=== PATIENT | female | born 1970 | race Caucasian/White ===

== ENCOUNTER 2017-12-12 10:20 | Observation (INO) ==
[2017-12-12 11:24] LABS: Basophils % 0.5 %; Eosinophils # 0.2 K/mcL (0.0-0.6); Eosinophils % 1.8 %; Hematocrit 31.2 % (35.3-44.9); Hemoglobin 10.3 g/dL (11.5-15.4); Immature Granulocytes % 0.7 % (0-4); Lymphocytes # 3.2 K/mcL (0.6-4.6); Lymphocytes % 37.6 %; Mean Corpuscular Hemoglobin 26.5 pg (28.0-33.3); Mean Corpuscular Volume 80.4 fL (83.0-100.0); Mean Platelet Volume 9.4 fL (9.4-12.4); Monocytes # 0.5 K/mcL (0.0-1.3); Monocytes % 6.4 %; Neutrophils # 4.5 K/mcL (1.6-8.9); Platelet Count 221 K/mcL (140-400); Red Blood Count 3.88 M/mcL (3.82-4.97); Red Cell Distribution Width 13.3 % (11.5-14.5)
[2017-12-12 11:45] LABS: Bilirubin,Urine Negative (Negative); Blood,Urine Trace (Negative); Clarity,Urine Clear (Clear); Color,Urine Yellow (Yellow); Glucose,Urine (UA) 100 mg/dL (Normal); Ketones,Urine Negative (Negative); Leukocyte Esterase,Urine Negative (Negative); Nitrite,Urine Negative (Negative); Protein,Urine Negative (Neg-Trace); Specific Gravity,Urine 1.015 (1.010-1.025); Urobilinogen,Urine Normal (Normal)
[2017-12-12 11:48] LABS: Bacteria,Urine None Seen per hpf (None-Few); Hyaline Casts,Urine None Seen per lpf (None-Few); RBC,Urine 0-3 per hpf (0-3); Squamous Epithelial Cell,Urine Many per lpf (None-Few); WBC,Urine 0-3 per hpf (0-3)
[2017-12-12 11:50] LABS: Troponin I < 0.03 ng/mL (< 0.04)
[2017-12-12 11:51] LABS: BUN/Creatinine Ratio 22 (6-26); Blood Urea Nitrogen 14 mg/dL (6-20); Calcium 9.1 mg/dL (8.6-10.3); Carbon Dioxide 24 mEq/L (23-29); Chloride 104 mEq/L (98-107); Glucose 310 mg/dL (70-105); Osmolality,Calculated 294 (280-300); Potassium 3.6 mEq/L (3.5-5.1); Sodium 136 mEq/L (136-145); eGFR For African Americans > 60 (> 60); eGFR For Non-African Americans > 60 (> 60)
[2017-12-12] MEDS ORDERED: 0.9 % Sodium Chloride 1,000 ML IVC ONE (12:35)
--- NOTE | 2017-12-12 13:47 | Emergency Department Note ---
Disposition Clinical Impression: Bradycardia, Near syncope Chest pain Qualifiers: Chest pain type: unspecified Qualified Code(s): R07.9 - Chest pain, unspecified Disposition: Admitted As Inpatient Condition: Good Referrals: Camilo Lux DO [Primary Care Provider] - Forms: ED Satisfaction Letter, Work/School Release General Adult HPI - General Chief complaint: ED General Medical Stated complaint: high blood sugar Time Seen by Provider: 12/12/17 10:24 Source: patient Mode of arrival: ambulatory Limitations: no limitations Nursing Notes Reviewed: Yes Vital Signs Reviewed: Yes - History of Present Illness HPI Narrative: Patient presents to the emergency department for evaluation of lightheadedness, feeling like she is going to pass out, blurred vision, chest pain. Patient states that she has been having issues with her blood sugar over the last several weeks. She is not sure if it is related to this or not. She describes first onset of chest pain 2 days ago. Describes a pressure in her chest. Pain is been intermittent in nature since this time. States she has had previous cardiac worse workup is unsure when last one was. She has multiple risk factors including obesity, hypertension, hyperlipidemia. Family history of heart disease. The patient's generalized weakness and "not feeling right" -is otherwise Hard for her to explain. At this point, we will further investigate with cardiac workup as well as treat her hypoglycemia with fluids. Pain Scale: 0 - Related Data Home Medications Medication Instructions Recorded Confirmed Atenolol [Tenormin] 25 mg PO DAILY 12/12/17 12/12/17 Diclofenac Sodium [Voltaren] 1 appl TP QID 12/12/17 12/12/17 Fenofibrate [Tricor] 54 mg PO DAILY 12/12/17 12/12/17 Fluticasone Propionate Nasal 1 spray NS DAILY 12/12/17 12/12/17 [Flonase] Insulin Glargine,Hum.rec.anlog 28 unit SQ HS 12/12/17 12/12/17 [Basaglar Annie U-100] Lidocaine 4% CRM (LMX) [Lmx 4] 1 appl TP TID 12/12/17 12/12/17 Liraglutide [Victoza 3-Jas] 1.8 mg IJ DAILY 12/12/17 12/12/17 Losartan Potassium [Cozaar] 50 mg PO BID 12/12/17 12/12/17 Omeprazole Magnesium 20 mg PO DAILY PRN 12/12/17 12/12/17 Ranitidine HCl [Acid Pass Worker] 150 mg PO HS PRN 12/12/17 12/12/17 SUMAtriptan Succinate [Imitrex] 100 mg PO TID PRN 12/12/17 12/12/17 hydroCHLOROthiazide 50 mg PO QAM 12/12/17 12/12/17 [Hydrochlorothiazide] Previous Rx's Medication Instructions Recorded Cyclobenzaprine [Flexeril] 10 mg PO TID PRN #21 tablet 11/26/17 Naproxen 500 mg PO BID PRN #20 tablet 11/26/17 Allergies Allergy/AdvReac Type Severity Reaction Status Date / Time cephalexin [From Keflex] Allergy Hives Verified 12/12/17 14:15 lisinopril AdvReac Cough Verified 12/12/17 14:15 loratadine AdvReac See Verified 12/12/17 14:15 Comments simvastatin AdvReac Cough Verified 12/12/17 14:15 ceftinir Allergy Hives Uncoded 12/12/17 14:15 Review of Systems: CONSTITUTIONAL: Generalized weakness and fatigue HEENT: Eyes: No visual changes. Ears, Nose, Throat: No hearing loss, difficulty talking or unable to swallow. SKIN: No rash or itching. CARDIOVASCULAR: Chest pain RESPIRATORY: No shortness of breath, cough or sputum. GASTROINTESTINAL: No anorexia, nausea, vomiting or diarrhea. No abdominal pain or blood. GENITOURINARY: No burning on urination or hematuria. NEUROLOGICAL: Near syncope and associated dizziness No headache, , paralysis, ataxia, numbness or tingling in the extremities. No change in bowel or bladder control. MUSCULOSKELETAL: No muscle pain, back pain, joint pain or stiffness. 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: Reports: non-contributory - Social History Smoking Status: Never smoker Smokeless Tobacco Status: No Alcohol use: Reports: none Drug use: Reports: none Physical Exam General: Well appearing, nontoxic, no acute distress Head: Normocephalic Atraumatic Eyes: PERRL, EOMI ENT: Airway patent, no stridor Neck: supple, no meningismus Chest: Lungs clear to auscultation bilateral Cardiac: Regular rate and rhythm, no murmurs, rubs or gallops Abdomen: soft, nontender, nondistended; Musculoskeletal: Calves symmetric, nontender, no palpable cord Skin: No rash, normal skin tone Neuro: No gross deficit Psych: Flat affect - General General appearance: alert, in no apparent distress Course - Reevaluation(s) Reevaluation #1: During the patient's stay she has had multiple episodes of bradycardia captured on the monitor. Rate goes to the low 40s. No specific sign of heart block at this time. Reevaluation #2: On reevaluation of patient she states that she has had multiple episodes while lying in bed where she feels worsening generalized feeling which she somewhat describes as dizziness. She has had multiple episodes of near-syncope where she has to sit down for passing out. The patient has had runs of bradycardia in the low 40s. Patient takes atenolol 25 mg tablets daily. Patient continues to have menstrual periods. Heart score of 4. Patient was brought in for further observation - Consultations Consultation #1: Discussed with hospitalist. Hospitalist requests TSH and free T4. Vital Signs Temperature 98.3 F 12/12/17 10:20 Pulse Rate 54 12/12/17 10:20 Respiratory Rate 18 12/12/17 10:20 Blood Pressure 169/110 12/12/17 10:20 O2 Sat by Pulse Oximetry 97 12/12/17 10:20 Temperature 98.3 F 12/12/17 10:30 Pulse Rate 50 12/12/17 14:15 Respiratory Rate 18 12/12/17 14:15 Blood Pressure 167/77 12/12/17 14:15 O2 Sat by Pulse Oximetry 99 12/12/17 14:15 Oxygen Delivery Oxygen Delivery Room Air Medical Decision Making - Medical Records Medical records reviewed: Yes I reviewed the patient's medical records. - Lab Data Lab results reviewed: Yes I reviewed the patient's lab results. Result diagrams: 12/12/17 11:03 12/12/17 11:03 Lab Results 12/12/17 12/12/17 12/12/17 Range/Units 10:47 11:03 11:03 WBC 8.5 (4.3-11.1) K/mcL RBC 3.88 (3.82-4.97) M/mcL Hgb 10.3 L (11.5-15.4) g/dL Hct 31.2 L (35.3-44.9) % MCV 80.4 L (83.0-100.0) fL MCH 26.5 L (28.0-33.3) pg MCHC 33.0 (31.6-35.5) g/dL RDW 13.3 (11.5-14.5) % Plt Count 221 (140-400) K/mcL MPV 9.4 (9.4-12.4) fL Immature Gran % 0.7 (0-4) % Seg Neutrophils % 53.0 % Lymphocytes % 37.6 % Monocytes % 6.4 % Eosinophils % 1.8 % Basophils % 0.5 % Neutrophils # 4.5 (1.6-8.9) K/mcL Lymphocytes # 3.2 (0.6-4.6) K/mcL Monocytes # 0.5 (0.0-1.3) K/mcL Eosinophils # 0.2 (0.0-0.6) K/mcL Basophils # 0.0 (0.0-0.2) K/mcL Sodium 136 (136-145) mEq/L Potassium 3.6 (3.5-5.1) mEq/L Chloride 104 (98-107) mEq/L Carbon Dioxide 24 (23-29) mEq/L BUN 14 (6-20) mg/dL Creatinine 0.65 (0.60-1.20) mg/dL Est GFR ( Amer) > 60 (> 60) Est GFR (Non-Af Amer) > 60 (> 60) BUN/Creatinine Ratio 22 (6-26) Glucose 310 H (70-105) mg/dL POC Glucose 288 H (70-99) mg/dL Calculated Osmolality 294 (280-300) Calcium 9.1 (8.6-10.3) mg/dL Troponin I < 0.03 (< 0.04) ng/mL Urine Color (Yellow) Urine Clarity (Clear) Urine pH (5.0-8.0) pH Units Ur Specific [place] (1.010-1.025) Urine Protein (Neg-Trace) mg/dL Urine Glucose (UA) (Normal) mg/dL Urine Ketones (Negative) mg/dL Urine Blood (Negative) Urine Nitrite (Negative) Urine Bilirubin (Negative) Urine Urobilinogen (Normal) mg/dL Ur Leukocyte Esterase (Negative) Urine Microscopic RBC (0-3) per hpf Urine Microscopic WBC (0-3) per hpf Ur Squamous Epith Cells (None-Few) per lpf Urine Bacteria (None-Few) per hpf Hyaline Casts (None-Few) per lpf Ur Culture Indicated? (NO) Urine Test (Negative) 12/12/17 12/12/17 Range/Units 11:38 11:38 WBC (4.3-11.1) K/mcL RBC (3.82-4.97) M/mcL Hgb (11.5-15.4) g/dL Hct (35.3-44.9) % MCV (83.0-100.0) fL MCH (28.0-33.3) pg MCHC (31.6-35.5) g/dL RDW (11.5-14.5) % Plt Count (140-400) K/mcL MPV (9.4-12.4) fL Immature Gran % (0-4) % Seg Neutrophils % % Lymphocytes % % Monocytes % % Eosinophils % % Basophils % % Neutrophils # (1.6-8.9) K/mcL Lymphocytes # (0.6-4.6) K/mcL Monocytes # (0.0-1.3) K/mcL Eosinophils # (0.0-0.6) K/mcL Basophils # (0.0-0.2) K/mcL Sodium (136-145) mEq/L Potassium (3.5-5.1) mEq/L Chloride (98-107) mEq/L Carbon Dioxide (23-29) mEq/L BUN (6-20) mg/dL Creatinine (0.60-1.20) mg/dL Est GFR ( Amer) (> 60) Est GFR (Non-Af Amer) (> 60) BUN/Creatinine Ratio (6-26) Glucose (70-105) mg/dL POC Glucose (70-99) mg/dL Calculated Osmolality (280-300) Calcium (8.6-10.3) mg/dL Troponin I (< 0.04) ng/mL Urine Color Yellow (Yellow) Urine Clarity Clear (Clear) Urine pH 6.0 (5.0-8.0) pH Units Ur Specific [place] 1.015 (1.010-1.025) Urine Protein Negative (Neg-Trace) mg/dL Urine Glucose (UA) 100 H (Normal) mg/dL Urine Ketones Negative (Negative) mg/dL Urine Blood Trace H (Negative) Urine Nitrite Negative (Negative) Urine Bilirubin Negative (Negative) Urine Urobilinogen Normal (Normal) mg/dL Ur Leukocyte Esterase Negative (Negative) Urine Microscopic RBC 0-3 (0-3) per hpf Urine Microscopic WBC 0-3 (0-3) per hpf Ur Squamous Epith Cells Many H (None-Few) per lpf Urine Bacteria None Seen (None-Few) per hpf Hyaline Casts None Seen (None-Few) per lpf Ur Culture Indicated? NO (NO) Urine Test Negative (Negative) - Radiology Data Radiology results reviewed: Yes I reviewed the patient's radiology results. - EKG Data EKG #1 EKG attestation: Yes I reviewed and interpreted this EKG. EKG results narrative: EKG shows sinus rhythm with ventricular rate of 60. [place] interval 138. QRS 86. QTC 447. Patient has no significant ST elevations or depressions. Patient has nonspecific T-wave changes to the inferior leads which are similar in appearance to previous of 04/10/17.
[2017-12-12] MEDS ORDERED: Naloxone 0.4 MG/ML INJ IVP PRN (15:00)
[2017-12-12] MEDS ORDERED: Famotidine 20 MG TABLET PO PRN (15:12)
[2017-12-12] MEDS ORDERED: SUMAtriptan succinate 50 MG TABLET PO PRN (15:12)
[2017-12-12] MEDS ORDERED: D5% in Water 1,000 ML IVC PRN (15:16)
[2017-12-12] MEDS ORDERED: *HR* Dextrose 50 % in Water (Syg) 50 ML SYRINGE IVP PRN (15:16)
[2017-12-12] MEDS ORDERED: Dextrose Gel 15 GM/37.5 ML TUBE PO PRN ×2 (15:16)
[2017-12-12 15:22] LABS: Thyroid Stimulating Hormone 1.525 mcIU/mL (0.340-5.600)
--- NOTE | 2017-12-12 15:32 | Internal Med History&Physical ---
<Dory Johnson Laz - Last Filed: 12/12/17 16:00> Date of Encounter: 12/12/17 Time of Encounter: 15:18 Internal Medicine - H&P: HPI Chief complaint: Presyncope Admitted From: Home Plans for Post Hospital Care: Home History of present illness: Ms. 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 The patient indicated that she takes atenolol daily, reports dose was cut in half, to 25 mg in the past 6 months. Patient indicated her symptoms started on Tuesday with dizziness, and almost passing out. The patient stated she has had vertigo in the past and has had a cardiac workup due to this. She has even seen neurology at [facility] and was told she has migraines. Indicated she had stress test done in summer 2016 and echocardiogram in winter 2016, possibly at [facility]. She indicated difficult IV access so the echocardiogram was limited. She indicated she see's a data analytics architect in [place]. Patient stated she has had a positive TB skin test in the past, however today her chest x-ray showed a stable, negative chest. EKG showed SR with SA rate in the 60's. The patient had strip that showed SB rate 44. The patient is also currently showing SB, 49-50. She currently reports she is still dizzy. Will get Echo and stress test study results from [place]. Trop was neg at <0.03, will trend serial cardiac enzymes and get orthostatics. Will hold atenolol for now. Past Med Surg Social Fam HX - Past Medical History Medical history: diabetes, hyperlipidemia, hypertension Psychiatric history: anxiety, depression - Past Surgical History Surgical History: non-contributory Additional surgical history: tubal ligation. knee surgery - Social History Smoking Status: Never smoker Smokeless Tobacco Status: No Alcohol use: none Drug use: none Internal Medicine - H&P: Meds Cyclobenzaprine [Flexeril] 10 mg PO TID PRN #21 tablet 11/26/17 [Rx] Naproxen 500 mg PO BID PRN #20 tablet 11/26/17 [Rx] Atenolol [Tenormin] 25 mg PO DAILY 12/12/17 [History] Diclofenac Sodium [Voltaren] 1 appl TP QID 12/12/17 [History] Fenofibrate [Tricor] 54 mg PO DAILY 12/12/17 [History] Fluticasone Propionate Nasal [Flonase] 1 spray NS DAILY 12/12/17 [History] Insulin Glargine,Hum.rec.anlog [Basaglar Kwikpen U-100] 28 unit SQ HS 12/12/17 [ History] Lidocaine 4% CRM (LMX) [Lmx 4] 1 appl TP TID 12/12/17 [History] Liraglutide [Victoza 3-Jas] 1.8 mg IJ DAILY 12/12/17 [History] Losartan Potassium [Cozaar] 50 mg PO BID 12/12/17 [History] Omeprazole Magnesium 20 mg PO DAILY PRN 12/12/17 [History] Ranitidine HCl [Acid Feed Mill Manager] 150 mg PO HS PRN 12/12/17 [History] SUMAtriptan Succinate [Imitrex] 100 mg PO TID PRN 12/12/17 [History] hydroCHLOROthiazide [Hydrochlorothiazide] 50 mg PO QAM 12/12/17 [History] 3 Allergy/AdvReac Type Severity Reaction Status Date / Time cephalexin [From Keflex] Allergy Hives Verified 12/12/17 14:15 lisinopril AdvReac Cough Verified 12/12/17 14:15 loratadine AdvReac See Verified 12/12/17 14:15 Comments simvastatin AdvReac Cough Verified 12/12/17 14:15 ceftinir Allergy Hives Uncoded 12/12/17 14:15 All Systems PM: A 10-system review of systems was performed and is negative for pertinent findings except as documented above in the HPI. - Constitutional Constitutional: no chills, no fever(s), no night sweats - EENT Eyes: no change in vision, no discharge, no pain, no photophobia Ears: no ear discharge, no ear pain, no tinnitus Nose, mouth and throat: no dysphagia, no nasal discharge, no neck pain, no sore throat - Cardiovascular Cardiovascular ROS IM: no chest pain, no diaphoresis, no dyspnea, no palpitations, no syncope - Respiratory Respiratory: no cough, no dyspnea, no wheezing, no excessive phlegm production - Gastrointestinal Gastrointestinal: no abdominal pain, no diarrhea, no hematemesis, no hematochezia, no melena, no nausea, no vomiting - Genitourinary Genitourinary: no change in urinary stream, no dysuria, no flank pain, no hematuria - Musculoskeletal Musculoskeletal ROS IM: no numbness, no tingling - Integumentary Integumentary IM: no rash, no unusual bruising - Neurological Neurological ROS: dizziness, headache(s), no confusion, no convulsions, no focal weakness, no numbness, no tingling, no tremor(s) - Hematologic/Lymphatic Hematologic/Lymphatic: no easy bruising - Constitutional Vitals: Temp Pulse Resp BP Pulse Ox 98.3 F 50 18 167/77 99 12/12/17 10:30 12/12/17 14:15 12/12/17 14:15 12/12/17 14:15 12/12/17 14:15 General appearance: Present: A&O X 3, answers questions appropriately - Head Head exam: Present: atraumatic, normocephalic - Eye Eye exam: Present: PERRL, conjuntiva pink, sclera anicteric Pupils: Present: PERRL - Neck Neck exam general surgery: Present: supple, trachea midline. Absent: lymphadenopathy - Respiratory Respiratory exam: Present: CTAB. Absent: accessory muscle use, rales, rhonchi, wheezes - Cardiovascular Cardiovascular exam: Present: bradycardia, RRR, +S1, +S2. Absent: diastolic murmur, gallop, rubs, systolic murmur - GI/Abdominal GI/Abdominal exam: Present: normal bowel sounds, soft, no peritoneal signs. Absent: distended, tenderness - Extremities Exam Extremities exam: Present: warm, radial pulses palpable and symmetrical. Absent : calf tenderness, cyanotic, pedal edema - Neurological Exam Neurological exam: Present: CN II-XII intact, oriented X3, no focal deficits. Absent: pronater drift, facial droop, speech deficit - Skin Skin exam: Present: dry, intact Internal Med - H&P Results - Labs CBC & Chem 7: 12/12/17 11:03 12/12/17 11:03 - Assessment and plan (1) Near syncope Current Visit: Yes Status: Acute Assessment and plan: Orthostatic bp's Echo in am Cardiac monitoring Hold atenolol (2) Bradycardia Current Visit: Yes Status: Acute Assessment and plan: The patient bradycardia is likely 2/2 atenolol. Will hold atenolol for now Cardiac monitoring (3) Migraines Current Visit: Yes Status: Acute Assessment and plan: Uncontrolled, the patient had a migraine this morning. Continue imitrex-home med prn Qualifiers: Migraine type: unspecified Intractability: not intractable Qualified Code (s): G43.909 - Migraine, unspecified, not intractable, without status migrainosus (4) Diabetes mellitus Current Visit: Yes Status: Acute Assessment and plan: Blood sugar is uncontrolled 310 Goal is under 200 AC/HS blood sugars with mod humalog insulin coverage Qualifiers: Diabetes mellitus type: type 2 Diabetes mellitus terminal worker insulin use: with terminal worker use Diabetes mellitus complication status: with other specified complication Qualified Code(s): E11.69 - Type 2 diabetes mellitus with other specified complication; Z79.4 - custodial (current) use of insulin - Time Spent With Patient Total time spent is greater than 50% in coordination of care (as documented) at patient's floor/unit and/or counseling patient: <Nayana Jarrell - Last Filed: 12/12/17 16:46> Date of Encounter: 12/12/17 Time of Encounter: 16:40 Internal Medicine - H&P: HPI History of present illness: Ms. Arrieta is a 47 year old female All Systems PM: A 10-system review of systems was performed and is negative for pertinent findings except as documented above in the HPI. - Constitutional Vitals: Temp Pulse Resp BP Pulse Ox 97.9 F 47 18 145/64 99 12/12/17 15:27 12/12/17 15:27 12/12/17 15:27 12/12/17 15:42 12/12/17 15:27 Internal Med - H&P Results - Labs CBC & Chem 7: 12/12/17 11:03 12/12/17 11:03 - Attending Attestation I examined this patient and my medical decision-making was reviewed with the Nurse Practitioner, Dory Johnson. I agree with the documented findings, disposition and treatment plan as described with any changes as documented below. 47-year-old female patient with history of diabetes mellitus type 2 who presented to the ER with complaints of increased blood sugars and episodes of blurred vision with dizziness. She has been having these symptoms for 2 days. She notes that her she gets dizzy when she sits up or stands up. Denies any fevers or chills. She has nausea. No vomiting. She has had episodes of syncope and passing out before and was previously worked up for seizures. She underwent MRI and EEG and followed up with neurology. She was told she did not have seizures and possibly her symptoms were related to migraine. She has been on Imitrex since then with some improvement in her symptoms and relief of migraine with that. She does state that she had migraine this morning and took her Imitrex with no improvement in her headache. She denies any chest pain. No cough. No fevers or chills. She reports that her blood sugars are in the 300s. She has recently been started on different medication for her diabetes and is trying to get her dose adjusted to control her blood sugars better. On examination, patient is awake and alert. Oriented 3. Answers questions appropriately. Heart sounds are normal. Breath sounds are normal. No pedal edema at this time. Neuro examination is normal. Patient Had bradycardia with heart rate going down into the 40s in the ED. It has improved since then. Hemoglobin 10.3, glucose 300 Presyncope: Monitor with telemetry. Orthostatics are negative. Patient has had prior workup done so cardiology at [place]. Will obtain records. Diabetes mellitus type 2: Blood sugars are elevated. Will place her on sliding scale insulin and Levemir. Monitor blood sugars closely. Diabetic diet. Migraine: Continue Imitrex. We will treat symptomatically. - Time Spent With Patient Total time spent is greater than 50% in coordination of care (as documented) at patient's floor/unit and/or counseling patient:
[2017-12-12 15:53] LABS: Triiodothyronine (T3) Total 1.15 ng/mL (0.87-1.78)
[2017-12-12] MEDS: 0.9 % Sodium Chloride 1,000 ML IVC SCH (15:53)
[2017-12-12] MEDS ORDERED: Insulin LISPRO 300 UNITS/3 ML VIAL SQ SCH ×2 (16:30→21:00)
[2017-12-12] MEDS: Insulin LISPRO 300 UNITS/3 ML VIAL SQ SCH ×2 (17:44→21:29)
--- NOTE | 2017-12-12 17:44 | Electrocardiograph Report ---
[place] [facility] Test Date: 2017-12-12 Pat Name: Desire Arrieta Department: [id number] Room: 3B37 Gender: F Operator Control Room: RASHEED : 1970 Requested By: [id number] Order Number: [id number] Reading MD: Ary Pimentel Measurements Intervals [place] Rate: 60 P: 4 ME: 138 QRS: 3 QRSD: 86 T: 6 QT: 446 QTc: 447 Interpretive Statements SINUS RHYTHM WITH SINUS ARRHYTHMIA Electronically Signed On 12-12-2017 17:42:44 EDT by Ary Pimentel
[2017-12-12] MEDS: Insulin DETEMIR 100 UNIT/ML X5UNITS SQ SCH (21:28)
[2017-12-12] MEDS: Acetaminophen 325 MG TABLET PO PRN (22:06)
[2017-12-13 05:24] LABS: Basophils % 0.6 %; Eosinophils # 0.2 K/mcL (0.0-0.6); Eosinophils % 2.4 %; Hemoglobin 9.4 g/dL (11.5-15.4); Immature Granulocytes % 0.4 % (0-4); Lymphocytes # 2.7 K/mcL (0.6-4.6); Lymphocytes % 38.3 %; Mean Corpuscular HGB Conc 32.4 g/dL (31.6-35.5); Mean Corpuscular Hemoglobin 26.5 pg (28.0-33.3); Mean Corpuscular Volume 81.7 fL (83.0-100.0); Mean Platelet Volume 9.6 fL (9.4-12.4); Monocytes # 0.4 K/mcL (0.0-1.3); Monocytes % 5.5 %; Neutrophils # 3.8 K/mcL (1.6-8.9); Platelet Count 200 K/mcL (140-400); Red Blood Count 3.55 M/mcL (3.82-4.97); Red Cell Distribution Width 13.2 % (11.5-14.5); Segmented Neutrophils % 52.8 %
[2017-12-13 05:43] LABS: BUN/Creatinine Ratio 18 (6-26); Blood Urea Nitrogen 12 mg/dL (6-20); Calcium 8.4 mg/dL (8.6-10.3); Carbon Dioxide 22 mEq/L (23-29); Chloride 107 mEq/L (98-107); Glucose 260 mg/dL (70-105); Osmolality,Calculated 293 (280-300); Potassium 3.7 mEq/L (3.5-5.1); Sodium 137 mEq/L (136-145); eGFR For African Americans > 60 (> 60); eGFR For Non-African Americans > 60 (> 60)
[2017-12-13] MEDS: *HR* Heparin 5,000 UNIT/ML VIAL SQ SCH ×2 (05:48→17:19)
[2017-12-13] MEDS: 0.9 % Sodium Chloride 1,000 ML IVC SCH (05:50)
[2017-12-13] MEDS: hydroCHLOROthiazide 25 MG TABLET PO SCH (09:06)
[2017-12-13] MEDS: Fenofibrate 54 MG TABLET PO SCH (09:06)
[2017-12-13] MEDS: Acetaminophen 325 MG TABLET PO PRN ×2 (09:08→20:10)
[2017-12-13] MEDS: Insulin LISPRO 300 UNITS/3 ML VIAL SQ SCH ×4 (09:09→21:09)
[2017-12-13] MEDS: Fluticasone Propionate Nasal 50 MCG/SPRAY BOTTLE NS SCH (09:09)
[2017-12-13] MEDS: (Liraglutide [Victoza 3-Pak] 1.8 MG) SQ SCH (10:35)
--- NOTE | 2017-12-13 12:45 | Discharge Summary ---
- NOTES TO OUTPATIENT PROVIDER Notes to Outpatient Provider: Pt was admitted for near syncope, bradycardia. BB has been held. Pt also reports that she has hyperglycemia despite stating that she follows a strict ADA diet and is diligent about counting carbs. Echo showed mild MR and pEF with inderterminate diastolic function. Date of Encounter: 12/13/17 Time of Encounter: 09:05 Hospital course: Ms. Arrieta is a 47 year old female - Time Spent with Patient Total time spent providing and/or coordinating discharge services: - Discharge Medications Home Medications: Cyclobenzaprine [Flexeril] 10 mg PO TID PRN #21 tablet 11/26/17 [Rx] Naproxen 500 mg PO BID PRN #20 tablet 11/26/17 [Rx] Atenolol [Tenormin] 25 mg PO DAILY 12/12/17 [History] Diclofenac Sodium [Voltaren] 1 appl TP QID 12/12/17 [History] Fenofibrate [Tricor] 54 mg PO DAILY 12/12/17 [History] Fluticasone Propionate Nasal [Flonase] 1 spray NS DAILY 12/12/17 [History] Insulin Glargine,Hum.rec.anlog [Basaglar Kwikpen U-100] 28 unit SQ HS 12/12/17 [ History] Lidocaine 4% CRM (LMX) [Lmx 4] 1 appl TP TID 12/12/17 [History] Liraglutide [Victoza 3-Jas] 1.8 mg IJ DAILY 12/12/17 [History] Losartan Potassium [Cozaar] 50 mg PO BID 12/12/17 [History] Omeprazole Magnesium 20 mg PO DAILY PRN 12/12/17 [History] Ranitidine HCl [Acid Senior Lead Software Engineer] 150 mg PO HS PRN 12/12/17 [History] SUMAtriptan Succinate [Imitrex] 100 mg PO TID PRN 12/12/17 [History] hydroCHLOROthiazide [Hydrochlorothiazide] 50 mg PO QAM 12/12/17 [History] Allergies/Adverse Reactions: 3 Allergy/AdvReac Type Severity Reaction Status Date / Time cephalexin [From Keflex] Allergy Hives Verified 12/12/17 14:15 lisinopril AdvReac Cough Verified 12/12/17 14:15 loratadine AdvReac See Verified 12/12/17 14:15 Comments simvastatin AdvReac Cough Verified 12/12/17 14:15 ceftinir Allergy Hives Uncoded 12/12/17 14:15 Date of admission: 12/12/17 14:45 Primary care physician: Camilo Lux DO - Constitutional Vitals: Temp Pulse Resp BP Pulse Ox 97.7 F 54 16 127/79 97 12/13/17 11:46 12/13/17 11:46 12/13/17 11:46 12/13/17 11:47 12/13/17 11:46 General appearance: Present: A&O X 3, answers questions appropriately - Patient Status Condition: Good - Discharge Instructions Follow Up With: Camilo Lux DO [Primary Care Provider] -
--- NOTE | 2017-12-13 14:06 | Internal Med Progress Note ---
Date of Encounter: 12/13/17 Time of Encounter: 09:05 - Assessment and plan (1) Bradycardia Current Visit: Yes Status: Acute Assessment and plan: Continued today. Avg rate for 24 hours is 54 bpm. Continue to hold BB, may take up to 24 hours for washout. Continue telemetry and reassess in the a.m. (2) Diabetes mellitus Current Visit: Yes Status: Acute Assessment and plan: Uncontrolled. Last A1c 9.5% in November,. Encourage lifestyle modifications and diet changes. Diabetic diet, accucheck achs, SSI. Qualifiers: Diabetes mellitus type: type 2 Diabetes mellitus pigment processor insulin use: with long-term use Diabetes mellitus complication status: with other specified complication Qualified Code(s): E11.69 - Type 2 diabetes mellitus with other specified complication; Z79.4 - care home (current) use of insulin (3) Migraines Current Visit: Yes Status: Chronic Assessment and plan: Chronic migraines. Pt takes Imitrex at home. Continue home medications. Today, BAGLEY pain 5/10, states is improved over admission. Qualifiers: Migraine type: unspecified Intractability: not intractable Qualified Code (s): G43.909 - Migraine, unspecified, not intractable, without status migrainosus (4) Near syncope Current Visit: Yes Status: Acute Assessment and plan: Patient presented to the emergency department complaining of dizziness, near syncope yesterday. Prior history of vertigo and has had a cardiac workup. Patient sees cardiology in [place]. Patient reports recent decrease in beta dayami, is decreased by half, patient now takes 25 mg by mouth daily. Beta dayami has been held during this visit, it does not appear to be any other medication that would cause bradycardia. Average 24 hour heart rate is 54. Discussed case with cardiology SOUND TRUCK OPERATOR, recommend 48 hours for beta dayami washout, we will reassess in the morning. Orthostatics are negative, echocardiogram showed an LVEF of 60%, mild MR. Otherwise, labs and vitals are stable and within normal limits. Suspect this is due to symptomatically bradycardia secondary to beta dayami use. Continue telemetry Continue to hold beta dayami Monitor labs and vitals Reassess in a.m. - Time Spent With Patient Total time spent is greater than 50% in coordination of care (as documented) at patient's floor/unit and/or counseling patient: - Subjective Interval history: Pt was seen and assessed at bedside at 0905 a.m. Pt states that she feels like she has returned to her baseline, but is concerned about bradycardia. She denies chest pain, n/v, diaphoresis, abdominal pain, and states that her headache is 5/10 today, which is improved from yesterday. I spoke with cardiology SOUND TRUCK OPERATOR regarding the continued bradycardia despite BB being held, she states to hold for 48 hours to wash it out and reassess in the morning. Will monitor overnight and likely discharge in the morning, consider cardiology if bradycardia persists tomorrow. - Constitutional Vitals: Temp Pulse Resp BP Pulse Ox 97.7 F 54 16 127/79 97 12/13/17 11:46 12/13/17 11:46 12/13/17 11:46 12/13/17 11:47 12/13/17 11:46 General appearance: Present: cooperative, A&O X 3, pleasant, no acute distress, answers questions appropriately - Head Head exam: Present: atraumatic, normal inspection, normocephalic - Eye Eye exam: Present: normal appearance, conjuntiva pink, sclera anicteric - Neck Neck exam general surgery: Present: normal inspection, supple, trachea midline. Absent: lymphadenopathy, tenderness - Respiratory Respiratory exam: Present: CTAB. Absent: accessory muscle use, rales, respiratory distress, rhonchi, wheezes - Cardiovascular Cardiovascular exam: Present: RRR, +S1, +S2. Absent: diastolic murmur, gallop, rubs, systolic murmur - GI/Abdominal GI/Abdominal exam: Present: normal bowel sounds, soft, no peritoneal signs. Absent: distended, hepatomegaly, tenderness - Extremities Exam Extremities exam: Present: normal capillary refill, normal inspection, warm, radial pulses palpable and symmetrical. Absent: calf tenderness, cyanotic, pedal edema, tenderness - Neurological Exam Neurological exam: Present: alert, oriented X3, no focal deficits. Absent: facial droop, speech deficit - Skin Skin exam: Present: dry, intact, normal color, warm. Absent: rash Internal Medicine: Result - Labs CBC & Chem 7: 12/13/17 04:50 12/13/17 04:50 Labs: Short CBC 12/13/17 Range/Units 04:50 WBC 7.1 (4.3-11.1) K/mcL Hgb 9.4 L (11.5-15.4) g/dL Hct 29.0 L (35.3-44.9) % Plt Count 200 (140-400) K/mcL Neutrophils # 3.8 (1.6-8.9) K/mcL BMP 12/13/17 04:50 Sodium 137 Potassium 3.7 Chloride 107 Carbon Dioxide 22 L BUN 12 Creatinine 0.67 Glucose 260 H Calcium 8.4 L Cardiac Enzymes 12/12/17 12/12/17 Range/Units 17:01 22:44 Troponin I < 0.03 < 0.03 (< 0.04) ng/mL - Impressions Impressions Echocardiogram 12/13/17 08:00 Impressions: LVEF 60%. Indeterminate diastolic function. Normal right ventricular structure and function. Mild mitral regurgitation. No pulmonary hypertension. Left Ventricular Wall Motion: Rest Echo Findings All wall segments showed normal motion. Findings: Study Quality * Technically adequate exam. ECG Findings * Normal sinus rhythm. Left Ventricle * LVEF 60%. * Normal LV chamber size, wall thickness and function. * Indeterminate diastolic function. Right Ventricle * Normal right ventricular structure and function. Left Atrium * Normal left atrial size. Right Atrium * Normal right atrial size. Mitral Valve * Normal mitral valve structure. * No mitral stenosis. * Mild mitral regurgitation. Aortic Valve * No aortic regurgitation. * Aortic valve not well visualized. * No aortic stenosis. Tricuspid Valve * No tricuspid regurgitation. * Normal tricuspid valve structure. * Estimated RA pressure is 3 mmHg. Pulmonic Valve * Pulmonic valve is not well visualized. * No pulmonic stenosis. * No pulmonic regurgitation. Pulmonary Artery * Pulmonary artery not well visualized. Aorta * Normally sized aortic root. Pericardium * There is no pericardial effusion present. Interatrial Septum * No evidence of PFO by color Doppler. IVC * Normal IVC dimensions and inspiratory collapse. Consult Discharge Plan - Plan Additional Instructions: Please follow up with your PCP in the next 5-7 days for a follow up and for any necessary medication adjustments Continue to hold your beta dayami and take the rest of your medications as directed. REturn to the ER as needed for any other problems or concerns or if your symptoms return or worsen. Resume your normal medications, diet, and activities as tolerated. As we discussed, speak with your PCP about your diabetic medications and how to decrease your A1c. Referrals: Camilo Lux DO [Primary Care Provider] -
[2017-12-13] MEDS: Insulin DETEMIR 100 UNIT/ML X5UNITS SQ SCH (21:10)
[2017-12-14 05:13] LABS: Basophils % 0.5 %; Eosinophils # 0.2 K/mcL (0.0-0.6); Eosinophils % 2.6 %; Hematocrit 30.3 % (35.3-44.9); Hemoglobin 9.9 g/dL (11.5-15.4); Immature Granulocytes % 0.9 % (0-4); Lymphocytes # 2.8 K/mcL (0.6-4.6); Lymphocytes % 42.7 %; Mean Corpuscular HGB Conc 32.7 g/dL (31.6-35.5); Mean Corpuscular Hemoglobin 26.4 pg (28.0-33.3); Mean Corpuscular Volume 80.8 fL (83.0-100.0); Mean Platelet Volume 9.7 fL (9.4-12.4); Monocytes # 0.4 K/mcL (0.0-1.3); Monocytes % 6.1 %; Neutrophils # 3.1 K/mcL (1.6-8.9); Platelet Count 216 K/mcL (140-400); Red Blood Count 3.75 M/mcL (3.82-4.97); Red Cell Distribution Width 13.3 % (11.5-14.5); Segmented Neutrophils % 47.2 %
[2017-12-14 05:32] LABS: BUN/Creatinine Ratio 18 (6-26); Blood Urea Nitrogen 11 mg/dL (6-20); Calcium 8.9 mg/dL (8.6-10.3); Carbon Dioxide 22 mEq/L (23-29); Chloride 106 mEq/L (98-107); Glucose 211 mg/dL (70-105); Osmolality,Calculated 290 (280-300); Potassium 3.8 mEq/L (3.5-5.1); Sodium 137 mEq/L (136-145); eGFR For African Americans > 60 (> 60); eGFR For Non-African Americans > 60 (> 60)
[2017-12-14] MEDS: *HR* Heparin 5,000 UNIT/ML VIAL SQ SCH (06:08)
[2017-12-14] MEDS: Acetaminophen 325 MG TABLET PO PRN (08:11)
[2017-12-14] MEDS: Fluticasone Propionate Nasal 50 MCG/SPRAY BOTTLE NS SCH (08:12)
[2017-12-14] MEDS: hydroCHLOROthiazide 25 MG TABLET PO SCH (08:12)
[2017-12-14] MEDS: Fenofibrate 54 MG TABLET PO SCH (08:12)
[2017-12-14] MEDS: (Liraglutide [Victoza 3-Pak] 1.8 MG) SQ SCH (08:13)
[2017-12-14] MEDS: Insulin LISPRO 300 UNITS/3 ML VIAL SQ SCH ×2 (08:14→11:57)
[2017-12-14 11:18] VITALS: BP 179/83
--- NOTE | 2017-12-14 13:32 | Discharge Summary ---
- NOTES TO OUTPATIENT PROVIDER Notes to Outpatient Provider: Pt was admitted for bradycardia, near syncope, and migraines. Pt returned to baseline and states that her episode of near syncope was actually about a year ago. BB has been held and pt remains in the 60s. She is asymptomatic and is able to ambulate and change positions without difficulty. She will need to follow up with cardiology for consultation for bradycardia. Date of Encounter: 12/14/17 Time of Encounter: 10:50 - Discharge Diagnosis (1) Bradycardia Priority: Secondary Status: Acute Assessment and Plan: Continued today. Rate palpated during exam was 68. Avg rate for last 24 hours is 56 bpm. Continue to hold BB, it has been held for > 48 hours with little to no change in pulse. Pt is asymptomatic and is able to ambulate and change positions without difficulty. Discussed with cardiology ACTIVITIES LEADER and states that as long as she is asymptomatic, pt can follow up in the office. (2) Diabetes mellitus Priority: Secondary Status: Acute Assessment and Plan: A1c 9.5% in November,. Encourage lifestyle modifications and diet changes. Diabetic diet, accucheck achs, SSI. Qualifiers: Diabetes mellitus type: type 2 Diabetes mellitus residential insulin use: with terminal supervisor use Diabetes mellitus complication status: with other specified complication Qualified Code(s): E11.69 - Type 2 diabetes mellitus with other specified complication; Z79.4 - terminal manager (current) use of insulin (3) Migraines Priority: Secondary Status: Chronic Assessment and Plan: Chronic migraines. Pt takes Imitrex at home. Continue home medications. Qualifiers: Migraine type: unspecified Intractability: not intractable Qualified Code (s): G43.909 - Migraine, unspecified, not intractable, without status migrainosus (4) Near syncope Priority: Secondary Status: Acute Assessment and Plan: Pt tells me today that her near syncopal episode was last summer and she has been asymptomatic since then. Pt states that she wants to go home for the holiday and that she is fine. Pt is asymptomatic with bradycardia and is able to ambulate in the hallway and change positions without difficulty. Discussed bradycardia with cardiology ACTIVITIES LEADER and she states that the pt could follow up outpatient and to continue to hold BB. Average 24 hour heart rate for the last 24 hours is 56. BB has been held > 48 hours. Orthostatics are negative, TTE with pEF and mild MR. Hospital course: Ms. Arrieta is a 47 year old female with past medical history of migraines and diabetes. Patient presented to the emergency room with migraine and near syncopal episode. Patient had complete workup. She was found to be bradycardic and her beta blockers been stopped for greater than 48 hours, bradycardia remains. Average heart rate for for last 24 hours is 56. She is asymptomatic. Today, likely in response to today being a holiday, patient states that she is feeling better and that her syncopal episode was actually last summer and not recently. Patient states that she is feeling better despite her concern over bradycardia yesterday. Discussed her case with cardiology ACTIVITIES LEADER who states that as long as patient is not symptomatic, she can follow up with cardiology in the office after discharge. Patient sees a drop clipper in [place], recommend that she follow up for visit evaluation of hypertension and bradycardia. Pt is stable and appropriate for discharge. Discharge discussed with: patient - Time Spent with Patient Total time spent providing and/or coordinating discharge services: Less than 30 minutes - Discharge Medications Home Medications: Cyclobenzaprine [Flexeril] 10 mg PO TID PRN #21 tablet 11/26/17 [Rx] Naproxen 500 mg PO BID PRN #20 tablet 11/26/17 [Rx] Atenolol [Tenormin] 25 mg PO DAILY 12/12/17 [History] Diclofenac Sodium [Voltaren] 1 appl TP QID 12/12/17 [History] Fenofibrate [Tricor] 54 mg PO DAILY 12/12/17 [History] Fluticasone Propionate Nasal [Flonase] 1 spray NS DAILY 12/12/17 [History] Insulin Glargine,Hum.rec.anlog [Basaglar Kwikpen U-100] 28 unit SQ HS 12/12/17 [ History] Lidocaine 4% CRM (LMX) [Lmx 4] 1 appl TP TID 12/12/17 [History] Liraglutide [Victoza 3-Jas] 1.8 mg IJ DAILY 12/12/17 [History] Losartan Potassium [Cozaar] 50 mg PO BID 12/12/17 [History] Omeprazole Magnesium 20 mg PO DAILY PRN 12/12/17 [History] Ranitidine HCl [Acid Photographic Reproduction Technician] 150 mg PO HS PRN 12/12/17 [History] SUMAtriptan Succinate [Imitrex] 100 mg PO TID PRN 12/12/17 [History] hydroCHLOROthiazide [Hydrochlorothiazide] 50 mg PO QAM 12/12/17 [History] Allergies/Adverse Reactions: 3 Allergy/AdvReac Type Severity Reaction Status Date / Time cephalexin [From Keflex] Allergy Hives Verified 12/12/17 14:15 lisinopril AdvReac Cough Verified 12/12/17 14:15 loratadine AdvReac See Verified 12/12/17 14:15 Comments simvastatin AdvReac Cough Verified 12/12/17 14:15 ceftinir Allergy Hives Uncoded 12/12/17 14:15 Date of admission: 12/12/17 14:45 Primary care physician: Camilo Lux DO Discharging clinician: Kavitha Morgan Anticipated date of discharge: 12/14/17 - Constitutional Vitals: Temp Pulse Resp BP Pulse Ox 98.2 F 62 15 179/83 97 12/14/17 11:16 12/14/17 11:16 12/14/17 11:16 12/14/17 11:16 12/14/17 11:16 General appearance: Present: cooperative, A&O X 3, pleasant, no acute distress, answers questions appropriately - Head Head exam: Present: atraumatic, normal inspection, normocephalic - Eye Eye exam: Present: normal appearance, conjuntiva pink, sclera anicteric - Neck Neck exam general surgery: Present: supple, trachea midline. Absent: lymphadenopathy - Respiratory Respiratory exam: Present: CTAB. Absent: accessory muscle use, rales, rhonchi, wheezes - Cardiovascular Cardiovascular exam: Present: RRR, +S1, +S2. Absent: bradycardia, diastolic murmur, gallop, rubs, systolic murmur, tachycardia - GI/Abdominal GI/Abdominal exam: Present: normal bowel sounds, soft. Absent: distended, hepatomegaly, tenderness - Extremities Exam Extremities exam: Present: normal capillary refill, normal inspection, warm, radial pulses palpable and symmetrical. Absent: calf tenderness, cyanotic, pedal edema, tenderness - Neurological Exam Neurological exam: Present: alert, oriented X3, no focal deficits. Absent: facial droop, speech deficit - Skin Skin exam: Present: dry, intact, normal color, warm. Absent: rash - Patient Status Disposition: Home, Self-Care Condition: Good Functional capacity at discharge: independent ambulation Overall status at discharge: patient is back to baseline - Discharge Instructions Follow Up With: Camilo Lux DO [Primary Care Provider] - 12/15/17 4:00 pm Additional Instructions: Please follow up with your PCP in the next 5-7 days for a follow up and for any necessary medication adjustments Continue to hold your beta dayami and take the rest of your medications as directed. REturn to the ER as needed for any other problems or concerns or if your symptoms return or worsen. Resume your normal medications, diet, and activities as tolerated. As we discussed, speak with your PCP about your diabetic medications and how to decrease your A1c. - Diet and Activity Activity: resume usual activities as tolerated Diet: diabetic diet
== END 2017-12-14 15:01 | disposition home or self-care (01) ==
LOC: EMEROO 10:20 → 3BNU 10:20
PROVIDERS: ADMIT Internal Medicine; ATTEND Internal Medicine